=== PATIENT | female | born 1985 | race Caucasian/White ===

== ENCOUNTER 2021-11-24 20:50 | Emergency (ER) | payer BC ==
[2021-11-24] MEDS ORDERED: Lactated Ringers 1,000 ML IV ONE (21:26)
== END 2021-11-24 23:18 | disposition home or self-care (01) ==
LOC: JD.ED 20:50
DX: R00.2 Palpitations (principal); R20.2 Paresthesia of skin; E03.9 Hypothyroidism, unspecified; Z79.899 Other long term (current) drug therapy
CPT/HCPCS: 36415; 80053; 83735; 84443; 85025; 93005; 96360; 99284; J7120; 93010; 93246